=== PATIENT | male | born 1935 | race Caucasian/White ===

== ENCOUNTER 2016-11-16 21:29 | Inpatient (IN) ==
--- NOTE | 2016-11-16 21:45 | EKG Report ---
Test Performed on : 11/16/2016 9:34:22 PM Test Reason : palpitations Blood Pressure : / mmHG Vent. Rate : 128 BPM Atrial Rate : 081 BPM P-R Int : 000 ms QRS Dur : 078 ms QT Int : 304 ms P-R-T Axes : 000 028 097 degrees QTc Int : 443 ms Atrial fibrillation. with rapid ventricular response. Nonspecific ST and T wave abnormality Abnormal ECG No previous ECGs available Unconfirmed Result
[2016-11-16] MEDS ORDERED: CARDIZEM IV ONE ×3 (21:48→23:33)
[2016-11-16 22:28] LABS: MANUAL DIFF NEEDED? NO
[2016-11-16 22:36] LABS: BASO% 1.2 % (0.0-0.8); EOS# 0.37 X1000 (0.0-0.7); EOS% 4.3 % (0.0-10.0); HEMATOCRIT 36.4 % (42.0-52.0); HEMOGLOBIN 12.1 g/dL (14.0-18.0); LYMPH# 3.04 X1000 (1.2-3.4); LYMPH% 35.7 % (20.5-51.1); MCH 30.1 PG (27-31); MCHC 33.2 g/dL (33-37); MCV 90.5 FL (81-99); MONO# 0.82 X1000 (0.11-0.59); MONO% 9.6 % (1.7-9.3); MPV 10.2 FL (7.4-10.4); NEUT% 49.2 % (42.2-75.2); PLT 219 X1000 (130-400); RBC 4.02 XMIL (4.7-6.1)
[2016-11-16 22:46] LABS: AGAP 14; ALBUMIN 4.2 g/dL (3.5-5.0); ALKALINE PHOSPHATASE 71 U/L (32-122); BUN 31 mg/dL (8-22); CALCIUM 10.3 mg/dL (8.8-10.2); CHLORIDE 100 mmol/L (98-107); COSMO 279; GOT 31 U/L (10-34); GPT 31 U/L (10-44); POTASSIUM 3.8 mmol/L (3.5-5.1); SODIUM 135 mmol/L (136-145); TCO2 21 mmol/L (25-35); TOTAL PROTEIN 7.6 g/dL (6.3-8.3)
[2016-11-16 23:00] LABS: INR 2.21 (0.86-1.15); PROTIME 24.6 Seconds (12.1-15.5)
[2016-11-16] MEDS ORDERED: CARDIZEM 100 MG/NS 100 MG/100 ML IVPB IV SCH (23:33)
[2016-11-17] MEDS ORDERED: NS 1,000 ML IV SCH (00:55)
--- NOTE | 2016-11-17 06:27 | Diag Imaging Result Document ---
PROCEDURE NAME: CHEST-PORTABLE - 11/16/2016 PORTABLE CHEST: COMPARISON: Compared to 09/17/2016. FINDINGS: The lungs are well expanded. The heart is not enlarged. The vessels are not distended. No pneumonia. No pleural effusions identified. IMPRESSION: Negative chest.
--- NOTE | 2016-11-17 09:12 | EKG Report ---
Test Performed on : 11/17/2016 08:50:45 AM Test Reason : rhythm change Blood Pressure : / mmHG Vent. Rate : 066 BPM Atrial Rate : 066 BPM P-R Int : 160 ms QRS Dur : 082 ms QT Int : 402 ms P-R-T Axes : 032 010 080 degrees QTc Int : 421 ms Normal sinus rhythm. with sinus arrhythmia. Normal ECG When compared with ECG of 16-NOV-2016 21:34, Sinus rhythm. has replaced Atrial fibrillation. Vent. rate has decreased BY [address] no longer depressed in Anterior leads Confirmed by Marvin Hi MD ([id number]) on 11/24/2016 10:15:51 PM
[2016-11-17] MEDS ORDERED: CARDIZEM CD PO ONE (12:20)
[2016-11-17] MEDS: FISH OIL CONCENTRATE PO SCH ×2 (14:04→18:18)
--- NOTE | 2016-11-17 15:18 | HISTORY AND PHYSICAL ---
CHIEF COMPLAINT: Hemoptysis. HISTORY OF PRESENT ILLNESS: This is an 81-year-old male with a history of atrial fibrillation on chronic anticoagulation, hypertension, diabetes who presented to the emergency room complaining of coughing up blood. He stated that he got up about 30 minutes prior to coming to the emergency room and coughed up some blood. This was his 3rd episode in the last 24 hours. Therefore, he presented for evaluation. He also stated that he checked his heart rate and his heart rate was in the 130s and he does have a history of atrial fibrillation. He is on chronic anticoagulation. He states his last INR was 5 weeks ago and it was 2.5, his target being 2-3. He was found to be in Afib RVR in the 140s. He was given Cardizem 10 mg IV push x3 and admitted for further evaluation and treatment. PAST MEDICAL HISTORY: Afib, hypertension, hypercholesterolemia, diabetes type 2, obesity. PAST SURGICAL HISTORY: Denies. SOCIAL HISTORY: He quit smoking many years ago. He has wine daily, 1 glass. He denies any illicit drug use. ALLERGIES: Penicillin with unknown reaction. HOME MEDICATIONS: A list will be obtained. REVIEW OF SYSTEMS: A 14 point review of systems is discussed with the patient with pertinent positives stated in HPI. He denied any chest pain, syncope, dizziness, any shortness of breath, fever, chills, PND, orthopnea. No nausea, vomiting, diarrhea, constipation, black or bloody vomitus, black or bloody stools, any hematuria, dysuria, frequency, urgency. No bruising or bleeding gums. PHYSICAL EXAMINATION: GENERAL: This is an 81-year-old male who is sitting in the bed, in no distress. VITAL SIGNS: Blood pressure is 141/70 with a heart rate of 76, respirations are 20. Temperature is 97.3 degrees with room air saturations of 97%-98%. HEENT: Head is normocephalic, atraumatic. Pupils are equal, round, react to light. EOMs are intact. Sclerae are anicteric. Mucous membranes are moist. NECK: Supple. Trachea midline. CARDIOVASCULAR: Regular rate and rhythm. S1 and S2 appreciated. He is in sinus rhythm at a rate of 76. PULMONARY: Breath sounds are clear with no increased work of breathing noted. GASTROINTESTINAL: Abdomen is soft, nontender, nondistended with bowel sounds in all 4 quadrants. BACK: No CVAT. No spine tenderness. MUSCULOSKELETAL: Good range of motion of joints. EXTREMITIES: No clubbing, cyanosis, or edema. Pulses are palpable x4. Calves are nontender. NEUROLOGIC: He is alert and oriented x3. DIAGNOSTICS: WBC is 8.5 with hemoglobin 12.1, hematocrit 36.4, and platelets of 219,000. INR is 2.21. Sodium is 135, potassium 3.8, BUN 31, creatinine 1, with a glucose of 138. Chest x-ray revealed a negative chest. EKG: At 9 o'clock on the , arrival to the ER he was in Afib, RVR at a rate of 128. EKG this morning at 8 o'clock reveals sinus rhythm with a rate of 66. ASSESSMENT AND PLAN: 1. Atrial fibrillation, RVR. He is currently in sinus rhythm. We will continue his home medications. We will continue telemetry and follow. 2. Hemoptysis. His INR was 2.2. He does have a target of 2-3 for atrial fibrillation. Chest x- ray was clear. He denies any further hemoptysis. We will monitor. 3. Chronic anticoagulation. He is on warfarin. We will verify the dose and continue. His target is 2-3 for atrial fibrillation. We will continue. 4. Hypertension. We will identify his home medications and continue. 5. Diabetes mellitus. We will continue his Glucophage. Place on pattern blood glucose with sliding scale insulin and follow. Further treatments pending hospital course. Dictated by VIRGILIO Jenkins for Dion Ferrer MD cc: VIRGILIO Jenkins MD
[2016-11-17] MEDS: HUMALOG DOSE (PARKWAY) SUBQ SCH ×2 (16:50→21:03)
[2016-11-17] MEDS: GLUCOPHAGE PO SCH (18:19)
--- NOTE | 2016-11-17 18:32 | CONSULTATION ---
DATE OF CONSULTATION: 11/17/2016 INDICATION: Atrial fibrillation. HISTORY OF PRESENT ILLNESS: Mr. Lopez is an 81-year-old white male with a history of paroxysmal atrial fibrillation normally followed by Dr. Ku. He presented for evaluation of rapid heart rate that began yesterday evening around 8:30 or so while he was making some ice cream. He had no other associated symptoms. He presented to the ER and was found to have a heart rate in the 120s. He was placed on a diltiazem infusion and overnight he converted to sinus rhythm. He has not had any complaints today. He has not had any recent respiratory complaints. He reports compliance with his Coumadin. He did have some mild hemoptysis that occurred in the setting of a lot of sinus issues a month ago but has had no recurrence and reports that he has had good control of his INR that has been managed by his primary care physician. PAST MEDICAL HISTORY: 1. Significant for paroxysmal atrial fibrillation. 2. Hypertension. 3. Hyperlipidemia. 4. Diabetes mellitus. SOCIAL HISTORY: No smoking currently. He has 1 glass of wine daily. Denies any illicit drug use. FAMILY HISTORY: Significant for hypertension. REVIEW OF SYSTEMS: Ten system review of systems is negative except for those mentioned in HPI. PHYSICAL EXAMINATION: Vital Signs: He is afebrile. Heart rate 75, blood pressure 128/68. General: No acute distress. HEENT: Oropharynx is moist. Normal dentition. Eye examination is pink conjunctivae, white sclerae. Neck: Examination shows no obvious thyromegaly or thyroid tenderness. Cardiovascular: He is in a regular rate and rhythm. He has no obvious murmurs. He has no S3 present. He has no lower extremity edema. Chest: Clear bilaterally. No increased work of breathing. Abdomen: Soft, nontender, nondistended. No obvious organomegaly. Skin Exam: Warm and dry throughout without any rashes. Neurological: He is moving all extremities well. Cranial nerves 2-12 are intact without any sensation deficits. Psychiatric: Alert, oriented, and pleasant. Normal mood and affect. PERTINENT DATA: White count is 8.5, hematocrit 36.4, platelet count 219,000, INR 2.2. Sodium 135, potassium 3.8, BUN 14, creatinine 1. Cardiac enzymes are negative. ASSESSMENT: Paroxysmal atrial fibrillation, spontaneous conversion last night. PLAN: I will place him on flecainide at a dose of 50 mg b.i.d. At this point he is doing quite well. He may follow up with Dr. Ku as an outpatient. If he is stable overnight he certainly could be discharged home. His INR is being managed by the primary team. I have no further recommendations at this point. cc: Josue Vásquez MD
[2016-11-17] MEDS: TAMBOCOR PO SCH (20:53)
[2016-11-17] MEDS: CALTRATE 600 + D PO SCH (20:53)
[2016-11-17] MEDS: BUSPAR PO SCH (20:55)
[2016-11-17] MEDS ORDERED: TIMOPTIC 0.5% OPH SOLUTION BOTH EYES SCH (21:00)
[2016-11-17] MEDS ORDERED: TAMBOCOR PO SCH (21:00)
[2016-11-17] MEDS ORDERED: QVAR INH SCH (21:00)
[2016-11-17] MEDS ORDERED: MICARDIS PO SCH (21:00)
[2016-11-17] MEDS ORDERED: CARDIZEM CD PO SCH (21:00)
[2016-11-17] MEDS ORDERED: ZOCOR PO SCH (21:00)
[2016-11-17] MEDS ORDERED: COUMADIN PO SCH (21:00)
[2016-11-18 06:20] LABS: HEMATOCRIT 37.7 % (42.0-52.0); HEMOGLOBIN 12.2 g/dL (14.0-18.0); MCH 29.5 PG (27-31); MCHC 32.4 g/dL (33-37); MCV 91.1 FL (81-99); MPV 10.6 FL (7.4-10.4); RBC 4.14 XMIL (4.7-6.1)
[2016-11-18] MEDS: HUMALOG DOSE (PARKWAY) SUBQ SCH (06:21)
[2016-11-18 06:23] LABS: INR 1.93 (0.86-1.15); PROTIME 22.2 Seconds (12.1-15.5)
[2016-11-18 06:40] LABS: AGAP 12; ALBUMIN 4.4 g/dL (3.5-5.0); ALKALINE PHOSPHATASE 72 U/L (32-122); BUN 21 mg/dL (8-22); CALCIUM 10.2 mg/dL (8.8-10.2); CHLORIDE 101 mmol/L (98-107); COSMO 278; GOT 31 U/L (10-34); GPT 29 U/L (10-44); POTASSIUM 4.6 mmol/L (3.5-5.1); SODIUM 137 mmol/L (136-145); TCO2 23 mmol/L (25-35); TOTAL PROTEIN 7.5 g/dL (6.3-8.3)
[2016-11-18] MEDS ORDERED: PROTONIX PO SCH (07:00)
[2016-11-18 07:52] VITALS: BP 137/66
[2016-11-18] MEDS: GLUCOPHAGE PO SCH (08:29)
[2016-11-18] MEDS: CALTRATE 600 + D PO SCH (08:30)
[2016-11-18] MEDS: TAMBOCOR PO SCH (08:30)
[2016-11-18] MEDS: BUSPAR PO SCH (08:30)
[2016-11-18] MEDS: FISH OIL CONCENTRATE PO SCH (08:31)
[2016-11-18] MEDS ORDERED: THERA M PLUS PO SCH (09:00)
[2016-11-18] MEDS ORDERED: PATIENT'S OWN MED PO SCH (09:00)
[2016-11-18] MEDS ORDERED: CARDIZEM CD PO SCH (09:00)
[2016-11-18] MEDS ORDERED: BIOTIN 1000 MG PO SCH (09:00)
[2016-11-18] MEDS ORDERED: FERROUS SULFATE PO SCH (09:00)
[2016-11-18] MEDS ORDERED: FIBERCON PO SCH (09:00)
[2016-11-18] MEDS ORDERED: COLACE PO SCH (09:00)
[2016-11-18] MEDS ORDERED: PEPCID PO SCH (09:00)
[2016-11-18] MEDS ORDERED: ZETIA PO SCH (09:00)
[2016-11-18] MEDS ORDERED: COUMADIN PO SCH (21:00)
--- NOTE | 2016-11-24 23:17 | PROVIDER DOCUMENTATION ---
This chart was entered by Kailey Kowalski Scribe, acting as scribe for Satinder Alcantara MD. HPI-Cardiac General - General Chief Complaint: Palpitations Stated Complaint: PALPITATIONS Time Seen by Provider: 11/16/16 21:33 Source: patient Allergies/Adverse Reactions: Patient Allergies Allergy/AdvReac Type Severity Reaction Status Date / Time Penicillins Allergy Unknown Verified 04/23/14 18:27 Home Medications: Home Medication List Medication Instructions Recorded Confirmed Last Taken Type Buspirone HCl [Buspar] 15 mg PO BID 04/23/14 11/17/16 11/16/16 History Calcium Carbonate/Vitamin D3 1 each PO BID 04/23/14 11/17/16 11/16/16 History [Calcium 600-Vit D3 200 Tablet] Diltiazem HCl [Cartia Xt] 240 mg PO DAILY 04/23/14 11/17/16 11/16/16 History Docusate Sodium [Stool Softener] 100 mg PO DAILY 04/23/14 11/17/16 11/16/16 History Lutein 40 mg PO DAILY 04/23/14 11/17/16 11/16/16 History Metformin [Glucophage] 500 mg PO BID 04/23/14 11/17/16 11/16/16 History Pantoprazole [Protonix] 40 mg PO DAILY@0700 04/23/14 11/17/16 11/16/16 History SIMVAstatin [Zocor] 40 mg PO QHS 04/23/14 11/17/16 11/16/16 History Telmisartan 40 mg PO HS 04/23/14 11/17/16 11/16/16 History Calcium Polycarbophil [Fiber Tabs] 625 mg PO DAILY 07/03/14 11/17/16 11/16/16 History Diltiazem HCl [Cartia Xt] 120 mg PO QHS 07/03/14 11/17/16 11/15/16 History Ezetimibe [Zetia] 10 mg PO DAILY 07/03/14 11/17/16 11/16/16 History Multivitamin [Multivitamins] 1 cap PO DAILY 07/03/14 11/17/16 11/16/16 History [place]-3 Fatty Acids/Fish Oil [Fish 2 tab PO TID 07/03/14 11/17/16 11/16/16 History Oil 1,000 mg Softgel] Timolol 0.5% Oph Solution 1 drop BOTH EYES QHS 07/03/14 11/17/16 11/16/16 History [Timoptic 0.5% Oph Solution] Warfarin Sodium 2.5 mg PO DIRECTED 11/16/16 11/17/16 Unknown History Warfarin Sodium 5 mg PO DIRECTED 11/16/16 11/17/16 Unknown History Beclomethasone Dipr 40 Mcg INH 1 puff INH HS 11/17/16 11/17/16 Unknown History [Qvar 40 Microgm] Biotin 1,000 mg PO DAILY 11/17/16 11/17/16 Unknown History Famotidine 20 mg PO DAILY 11/17/16 11/17/16 Unknown History Ferrous Sulfate 325 mg PO DAILY 11/17/16 11/17/16 Unknown History Flecainide [Tambocor] 50 mg PO BID #60 tablet 11/18/16 Unknown Rx - History of Present Illness-Cardiac Nature of Presenting Problem: PT IS A 81YOM PRESENTING TO THE ED C/O RACING HEART BEAT. PT STATES HE HAS INTERMITTENT A-FIB. PT STATES HE WAS WORKING OUTSIDE AND CAME IN AND FELT HIS HEART RACING. PT DENIES ANY SOB, CP, OR OTHER CARDIAC SYMPTOMS AT THIS TIME Location: reports: substernal Quality of Pain: reports: none Severity in ED: mild Onset/Duration: just prior to arrival Timing: still present Context/Activities at Onset: reports: light activity Modifying Factors: improves with: palpation. worse with: cold/heat therapy, coughing, exercise Palpitation Quality: fast/pounding heart beat History of arrythmia: reports: A-Fib Recent use of:: reports: no stimulants Nitro Today/Relief: reports: no nitro taken today Aspirin Treatment Today: reports: no aspirin today Prior Chest Pain/Cardiac Workup: reports: cardiac cath Associated Symptoms: denies: abdominal pain, back pain, dizziness, fatigue, shortness of breath, vomiting Similar Symptoms Previously?: No Recently Seen Here or By Another Healthcare Provider: No Review of Systems - Adult - REVIEW OF SYSTEMS - ADULT Constitutional: reports: no symptoms reported Eyes: reports: no symptoms reported Ears, Nose, Mouth & Throat: reports: no symptoms reported Cardiovascular: reports: see HPI, edema (MILD EDEMA BILATERAL LOWER EXT), irregular heart rate, palpitations. denies: chest pain, syncope Respiratory: reports: no symptoms reported Gastrointestinal: reports: no symptoms reported Genitourinary: reports: no symptoms reported Musculoskeletal: reports: no symptoms reported Integumentary: reports: no symptoms reported Neurological: reports: no symptoms reported Psychiatric: reports: no symptoms reported Endocrine: reports: no symptoms reported Hematologic/Lymphatic: reports: no symptoms reported Allergic/Immunologic: reports: no symptoms reported All Other Systems: Reviewed and Negative Past History - Adult - PAST MEDICAL HISTORY-ADULT Review of Records: reports: Old Records Reviewed, Nursing Assessment Review, Medications Reviewed, Social history reviewed & non-contributory. Major Childhood Illnesses: reports: denies history Cardiovascular: reports: A-Fib, HTN, hyperlipidemia, other Respiratory: reports: denies history Gastrointestinal: reports: denies history Obstetrical/Gynecological: reports: denies history Genitourinary: reports: denies history Musculoskeletal: reports: denies history Neurological: reports: denies history Endocrine/Immune: reports: Diabetes Other Conditions: reports: denies history - PRIOR SURGERIES/PROCEDURES Surgical/Procedure History: reports: none - IMMUNIZATION STATUS Childhood Immunizations: See Nurse Assessment Flu Vaccine: See Nurse Assessment - FAMILY HISTORY Family History: reviewed, not pertinent - SOCIAL HISTORY Smoking: quit greater than 1 year Substance Use: none/never, alcohol Alcohol Use Frequency: every day Number of drinks per typical drinking period:: 2 drinks Living Situation: family Physical Exam-General - PHYSICAL EXAM-ADULT Initial Vital Signs Reviewed: Yes - CONSTITUTIONAL General Appearance: appears well, alert, mild distress. negative: no apparent distress - EYES Eyes: PERRL/EOMI, pink conjunctivae, fundi clear, no AV nicking - HEAD, EARS, NOSE, MOUTH & THROAT HENMT: normocephalic/atraumatic, moist mucous membranes, normal ENT inspection, TMs normal, pharynx normal - NECK Neck: non-tender, full range of motion, supple, normal inspection - RESPIRATORY Respiratory: chest non-tender, lungs clear, normal breath sounds, no pleuratic chest pain, no respiratory distress, no accessory muscle use - CARDIOVASCULAR Cardiovascular: normal peripheral pulses, no edema, no gallop, no JVD, no murmur , tachycardia, irregularly irregular. negative: regular rate, rhythm - GASTROINTESTINAL (ABDOMEN) Abdominal Exam: normal bowel sounds, non tender, soft, no organomegaly, no pulsatile mass - LYMPHATIC Lymphatic: no adenopathy - MUSCULOSKELETAL Back Exam: normal inspection, no CVA tenderness, no vertebral tenderness Extremity: normal range of motion, non-tender, normal gait, normal inspection, no pedal edema, no calf tenderness, normal capillary refill, pelvis stable - SKIN Integumentary: normal color, normal turgor, warm/dry - NEUROLOGIC Neurologic: senior technical architect II-XII nml as tested, no motor/sensory deficits - PSYCHIATRIC Psych/Mental Status: normal mood/affect, normal thought content, normal thought process, oriented x 3 Progress - PLAN OF CARE/RESULTS Progress/Plan/Lab Results: Orders Category Date Time Status Admit - [facility] Routine AdmDCTranf 11/17/16 00:15 Ordered Activity - Bed Rest with BRP ORDERED Care 11/17/16 00:15 Active Call Admitting on Arrival AT ADMISSION Care 11/17/16 00:16 Completed Vital Signs Order ARRIVAL TO ROOM Care 11/17/16 00:15 Completed Regular Diet Diet 11/17/16 00:16 Completed CHEST-PORTABLE [RAD] Stat Exams 11/16/16 21:35 Completed CBC WITH ELECTRONIC DIFF [HEME] Stat Lab 11/16/16 22:20 Completed CMP [COMPREHENSIVE METABOLIC PANEL] [CHEM] Stat Lab 11/16/16 22:20 Completed MAGNESIUM [CHEM] Stat Lab 11/16/16 22:20 Completed PROTIME WITH INR PL [COAG] Stat Lab 11/16/16 22:20 Completed TROPONIN T Stat Lab 11/16/16 22:20 Completed TSH Stat Lab 11/16/16 22:20 Completed Diltiazem 100 mg/Ns [Cardizem 100 mg/Ns] Med 11/16/16 23:33 Discontinued 100 mg in 100 ml IV 10 mg/hr Diltiazem [Cardizem] Med 11/16/16 21:48 Discontinued 10 mg IV NOW ONE Diltiazem [Cardizem] Med 11/16/16 22:31 Discontinued 10 mg IV NOW ONE Diltiazem [Cardizem] Med 11/16/16 23:33 Discontinued 10 mg IV NOW ONE EKG [EKG] Stat Ther 11/16/16 21:35 Draft Transfer/Admit Order [TRANSFER] Routine Transfer 11/17/16 00:17 Completed Result Diagrams: 11/18/16 05:10 11/18/16 05:10 Departure - Departure Time of Disposition Decision: 23:34 DIAGNOSIS: Atrial fibrillation with RVR Disposition: ADMITTED INPATIENT 09 Certified Medical Emergency: Emergent Condition: Fair - Critical Care Note This patient required my direct personal management.: Yes This chart was documented by the indicated scribe, (Kailey Kowalski Scribe) and accurately reflects the services I performed and decisions made by me, Satinder Alcantara MD, as attested by the provider's signature.
--- NOTE | 2016-11-28 18:19 | DISCHARGE SUMMARY ---
ADMISSION DATE: 11/17/2016 DISCHARGE DATE: 11/18/2016 DISCHARGE DIAGNOSES: 1. Atrial fibrillation with RVR currently in sinus rhythm. 2. Hemoptysis resolved. 3. Chronic anticoagulation on Coumadin secondary to atrial fibrillation. 4. Hypertension. 5. Diabetes. CONSULTATIONS AND PROCEDURE: BRIEF HOSPITAL COURSE: Patient is an 81-year-old male who was admitted as noted on the HPI secondary to coughing up some blood. He was watched overnight. He had no further issues. He was also noted to have atrial fibrillation with rapid ventricular response in the 140's. He was initially placed back on his home medications. He was also given flecainide per Cardiology. Thankfully, he had an uneventful hospital course and therefore will be discharged home. DISPOSITION: No change in the patient's home medications. He will follow up in 1-2 days with Cardiology. He has an appointment in the morning. No other changes were made. TIME SPENT: Thirty minutes was spent in discharge planning. cc: Dion Ferrer MD
== END 2016-11-18 10:45 | disposition home or self-care (01) ==
LOC: P.ED 21:29 → P.ICU 11-17 00:48 → SUATTDRO 11-17 00:48
PROVIDERS: ATTEND Family Medicine

== ENCOUNTER 2019-07-15 13:10 | Inpatient (IN) ==
[2019-07-15 14:03] LABS: BASO# 0.08 X1000 (0.0-0.2); BASO% 0.9 % (0.0-0.8); EOS# 0.25 X1000 (0.0-0.7); EOS% 2.8 % (0.0-10.0); HEMATOCRIT 35.6 % (42.0-52.0); HEMOGLOBIN 11.1 g/dL (14.0-18.0); IMM GRAN# 0.01 X1000 (0.0-0.04); IMM GRAN% 0.1 % (0.0-0.5); LYMPH# 1.81 X1000 (1.2-3.4); LYMPH% 20.2 % (20.5-51.1); MCH 29.5 PG (27-31); MCHC 31.2 g/dL (33-37); MCV 94.7 FL (81-99); MONO# 0.81 X1000 (0.11-0.59); MPV 10.3 FL (7.4-10.4); NEUT# 6.02 X1000 (1.4-6.5); PLT 234 X1000 (130-400); RBC 3.76 XMIL (4.7-6.1); RDW 13.1 % (11.5-14.5); WBC 8.98 X1000 (4.8-10.8)
[2019-07-15 14:41] LABS: AGAP 13; ALBUMIN 4.2 g/dL (3.5-5.0); ALKALINE PHOSPHATASE 84 U/L (32-122); BUN 24 mg/dL (8-22); CALCIUM 9.2 mg/dL (8.8-10.2); CHLORIDE 107 mmol/L (98-107); CK PROFILE 61 U/L (24-204); COSMO 287; CREATININE 0.9 mg/dL (0.7-1.2); ESTIMATED GFR > 60; GLUCOSE 127 mg/dL (70-104); GOT 20 U/L (10-34); GPT 18 U/L (10-44); POTASSIUM 4.2 mmol/L (3.5-5.1); SODIUM 141 mmol/L (136-145); TCO2 21 mmol/L (25-35); TOTAL PROTEIN 7.2 g/dL (6.3-8.3)
[2019-07-15 14:42] LABS: INR 1.35; PROTIME 17.4 Seconds (11.0-16.0); PTT 33.1 Seconds (22.3-41.8)
[2019-07-16 08:26] LABS: BASO# 0.05 X1000 (0.0-0.2); BASO% 0.5 % (0.0-0.8); EOS# 0.15 X1000 (0.0-0.7); EOS% 1.6 % (0.0-10.0); HEMOGLOBIN 12.5 g/dL (14.0-18.0); LYMPH# 1.83 X1000 (1.2-3.4); LYMPH% 19.9 % (20.5-51.1); MCH 30.2 PG (27-31); MCHC 32.1 g/dL (33-37); MCV 94.2 FL (81-99); MONO# 0.56 X1000 (0.11-0.59); MONO% 6.1 % (1.7-9.3); MPV 10.3 FL (7.4-10.4); NEUT# 6.59 X1000 (1.4-6.5); NEUT% 71.9 % (42.2-75.2); PLT 249 X1000 (130-400); RBC 4.14 XMIL (4.7-6.1); RDW 13.1 % (11.5-14.5); WBC 9.18 X1000 (4.8-10.8)
[2019-07-16 08:46] LABS: AGAP 11; ALB/GLOB RATIO 1.2; ALBUMIN 4.1 g/dL (3.5-5.0); ALKALINE PHOSPHATASE 75 U/L (32-122); BUN 14 mg/dL (8-22); CALCIUM 9.7 mg/dL (8.8-10.2); CHLORIDE 100 mmol/L (98-107); COSMO 280; ESTIMATED GFR > 60; GLUCOSE 137 mg/dL (70-104); GOT 20 U/L (10-34); GPT 18 U/L (10-44); SODIUM 139 mmol/L (136-145); TCO2 28 mmol/L (25-35); TOTAL BILIRUBIN 0.51 mg/dL (0.20-1.00); TOTAL PROTEIN 7.6 g/dL (6.3-8.3)
[2019-07-16 08:49] LABS: INR 1.38; PROTIME 17.2 Seconds (11.0-16.0)
[2019-07-16 16:10] VITALS: BP 139/64
== END 2019-07-16 18:09 | disposition home or self-care (01) | DRG 310 ==
LOC: P.ED 13:10 → EDIPHOLD 16:19 → SUATTDRO 16:19 → EDIPHOLD 17:14 → 3N 19:16
PROVIDERS: ATTEND Internal Medicine